=== PATIENT | female | born 1945 | race Caucasian/White ===

== ENCOUNTER 2017-11-17 13:22 | Emergency (ER) | payer MEDICARE ==
[~2017-11-17 13:22] MED LIST: ALPR0.5T PO; DULO60CA44 PO; MONT10TA21 PO; TRAZ-187 PO
== END 2017-11-17 14:41 | disposition home or self-care (01) ==
LOC: EDH 13:22
DX: S90.812A Abrasion, left foot, initial encounter (principal); L03.116 Cellulitis of left lower limb; W57.XXXA Bitten or stung by nonvenomous insect and other nonvenomous arthropods, initial encounter; Y93.89 Activity, other specified; Y92.89 Other specified places as the place of occurrence of the external cause; Y99.8 Other external cause status